=== PATIENT | male | born 1955 | race Caucasian/White ===

== ENCOUNTER → 2016-12-30 | Outpatient (CLI) | payer BC ==
[~2016-12-30] MED LIST: IOPAMIDOL (ISOVUE-M 200) 20 ML VIAL IV ONE; LIDOCAINE 1% 30 ML SDV ONE; NA BICARBONATE 50 MEQ/50 ML VIAL ONE
== END ==
LOC: FIMAGING 07:52
PROVIDERS: ATTEND Neurological Surgery
PROC: 3E0R3KZ Introduction of Other Diagnostic Substance into Spinal Canal, Percutaneous Approach (ICD-10-PCS; principal; 2016-12-30)
DX: M99.73 Connective tissue and disc stenosis of intervertebral foramina of lumbar region (principal); M48.06 Spinal stenosis, lumbar region; M53.3 Sacrococcygeal disorders, not elsewhere classified; M89.38 Hypertrophy of bone, other site; M43.16 Spondylolisthesis, lumbar region; M51.26 Other intervertebral disc displacement, lumbar region; Z98.890 Other specified postprocedural states
CPT/HCPCS: Q9966

== ENCOUNTER 2017-02-21 07:15 | Inpatient (IN) | payer BC ==
[~2017-02-21 07:15] MED LIST changes: +BACITRACIN 50,000 UNITS/10 ML SYR IRR ONE; +BUPIVACAINE/EPI 0.25% 30 ML SDV ONE; +CHLORHEXIDINE GLUC HIBICLENS 118 ML BTL TP ONE; -IOPAMIDOL (ISOVUE-M 200) 20 ML VIAL IV ONE; -LIDOCAINE 1% 30 ML SDV ONE; -NA BICARBONATE 50 MEQ/50 ML VIAL ONE; +THROMBIN (BOVINE) 20,000 UNIT VIAL TP ONE; +ceFAZolin 2 GM/DEXTROSE 100 ML IV ONE
[2017-02-21] MEDS ORDERED: CEFAZOLIN 2 GM/DEXTROSE/100 ML BAG IV ONE (08:36)
[2017-02-21] MEDS ORDERED: LIDOCAINE 1% 2 ML INJ ONE (08:36)
[2017-02-21] MEDS ORDERED: LR 1,000 ML IV ONE (09:36)
[2017-02-21] MEDS ORDERED: LIDOCAINE 1% 5 ML SDV ID PRN (09:36)
[2017-02-21] MEDS ORDERED: MIDAZOLAM 2 MG/2 ML VIAL ONE (11:15)
[2017-02-21] MEDS ORDERED: ACETAMINOPHEN 325 MG TAB PO PRN (12:05)
[2017-02-21] MEDS ORDERED: ONDANSETRON 4 MG/2 ML VIAL IVP PRN (12:05)
[2017-02-21] MEDS ORDERED: HYDROmorphONE/DILAUDID 1 MG/ML SYR IVP PRN (12:05)
[2017-02-21] MEDS ORDERED: DIAZEPAM 5 MG TAB PO PRN (12:05)
[2017-02-21] MEDS ORDERED: BISACODYL 10 MG SUPP PR PRN (12:05)
[2017-02-21] MEDS ORDERED: DIAZEPAM 10 MG/2 ML SYR IVP PRN (12:05)
[2017-02-21] MEDS ORDERED: POLYETHYLENE GLYCOL 3350 17 GM PKT PO PRN (12:05)
[2017-02-21] MEDS ORDERED: diphenhydrAMINE 25 MG CAP PO PRN (12:05)
[2017-02-21] MEDS ORDERED: ONDANSETRON DISINTEGRATING 4 MG TAB PO PRN (12:05)
[2017-02-21] MEDS ORDERED: HYDROmorphONE/DILAUDID 6 MG/30 ML PCA IV PRN (12:05)
[2017-02-21] MEDS ORDERED: NALOXONE HCL 0.4 MG/ML INJ IVP PRN (12:05)
[2017-02-21] MEDS ORDERED: LACTULOSE 20 GM/30 ML UDCUP PO PRN (12:05)
[2017-02-21] MEDS ORDERED: MAGNESIUM HYDROXIDE 30 ML UDCUP PO PRN (12:05)
[2017-02-21] MEDS ORDERED: fentaNYL 100 MCG/2 ML INJ ONE ×4 (12:34→19:48)
[2017-02-21] MEDS ORDERED: REMIFENTANIL HCL 1 MG VIAL ONE ×2 (12:34→14:57)
[2017-02-21] MEDS ORDERED: PROPOFOL/EMULSION 500 MG/50 ML BOTTLE IV ONE ×2 (12:35→14:58)
[2017-02-21] MEDS ORDERED: ONDANSETRON 4 MG/2 ML VIAL ONE (12:35)
[2017-02-21] MEDS ORDERED: DEXAMETHASONE 4 MG/ML VIAL ONE ×2 (12:35)
[2017-02-21] MEDS ORDERED: LIDOCAINE 2% 100 MG/5 ML SYR ONE (12:35)
[2017-02-21] MEDS ORDERED: PHENYLEPHRINE HCL 100 MCG/ML SYR ONE (13:07)
[2017-02-21] MEDS ORDERED: epHEDrine SULFATE 10 MG/ML SYR ONE (13:07)
[2017-02-21] MEDS ORDERED: BACITRACIN 50,000 UNITS/10 ML SYR IRR ONE ×2 (15:43→17:35)
[2017-02-21] MEDS ORDERED: morphINE *ANESTHESIA ONLY* 10 MG/ML VIAL ONE (17:58)
[2017-02-21] MEDS ORDERED: DIAZEPAM 10 MG/2 ML SYR ONE (18:45)
[2017-02-21] MEDS: NS W/ 20 KCl/L 1,000 ML IV SCH (20:35)
[2017-02-21] MEDS: FAMOTIDINE 20 MG/NACL 50 ML IV SCH (20:36)
[2017-02-21] MEDS: METOPROLOL SUCCINATE XR 100 MG TAB PO SCH (20:40)
[2017-02-21] MEDS: SENNOSIDES/DOCUSATE SODIUM TAB PO SCH (20:40)
[2017-02-21] MEDS: traZODone 50 MG TAB PO SCH (20:41)
[2017-02-21] MEDS: ATORVASTATIN CALCIUM 40 MG TAB PO SCH (20:41)
[2017-02-21] MEDS: morphINE SR 15 MG TAB PO SCH (20:41)
--- NOTE | 2017-02-21 20:43 | GOP ---
[f rep st] OPERATIVE REPORT DATE OF OPERATION: 02/21/2017 SURGEON: Esthela Hung MD COPPERSMITH HELPER: Uli Kenney PA-C PREOPERATIVE DIAGNOSIS: Prior lumbar surgery. L3-4, L4-5, L5-S1, post-laminectomy syndrome, degener ative disk disease, severe lumbar foraminal stenosis, intractable left lumbosacral radiculopathy, cherise mbar spondylosis. POSTOPERATIVE DIAGNOSIS: Prior lumbar surgery. L3-4, L4-5, L5-S1, post-laminectomy syndrome, degene rative disk disease, severe lumbar foraminal stenosis, intractable left lumbosacral radiculopathy, l umbar spondylosis. PROCEDURE PERFORMED: Posterior, lateral and intervertebral arthrodesis with decompression and arthr odesis L3-4, L4-5, L5-S1 (44914, 69158 x2), posterior segmental instrumentation L3, L4, L5, S1 (2284 2), spinal stereotaxy, placement of biomechanical expandable intervertebral device without anchors x 3 (L3-4, L4-5, L5-S1), same-incision bone graft harvest, microscope, spinal stereotaxy for placement of pedicle screws. FINDINGS: ESTIMATED BLOOD LOSS: 400 cc. INDICATIONS: The patient is a 61-year-old who had undergone 3 separate lumbar laminectomies at each of the levels L3-4, L4-5, L5-S1, all done by a surgeon in [place] without complication, who develope d intractable severe left leg pain, principally in an L5 distribution, but there were also some S1 c omponents, some posterior hamstring pain. There was pain on the top of the left foot. CT myelogram demonstrated severe foraminal stenosis at L5-S1, L4-5, and even at L3-4. There was terrible degene rative disk disease at L3-4 and L5-S1. There appeared to be severe left lateral recess stenosis at L4-5 and L3-4 and I suggested a 3-level fusion. He understood the risks of the surgery. His cardio logist did not suggest stopping his aspirin therapy. I wanted to have it stopped. I was not denice krishna to do the surgery on aspirin, but we certainly referred him, and offered him a visit with another spine surgeon who might consider such an approach. I was not comfortable with it, but he wanted thanh maria elena with me, and stopped the medication against the medical advice of his judicial law clerk. I did not have an opinion in this regard. I simply would not do his surgery while on anti-platelet agents. Manuel kimbrough knew there was risk of heart attack, nerve injury, spinal fluid leak, continued symptoms. He knew there was a chance surgery could fail. He knew there was a chance that he would have to have addit ional spine surgery at adjacent segments in the future and he accepted these risks. He knew that th e surgery may not alleviate his pain and that he may have a pseudarthrosis. There could be screw an d hardware fracture, malposition and malfunction. He accepted those risks. He wanted to proceed wi th surgery. DESCRIPTION OF PROCEDURE: The patient was taken to the operating room, placed in the supine positio n. General anesthesia was begun. He was flipped prone on the Saran table. Care was taken to pad all points of contact. His back was sterilely prepped and draped in the usual fashion. A localizi ng x-ray was taken. The O-arm was introduced sterilely onto the field. We made a midline incision from the spinous process of L2 down to the spinous process of S2. The tissue was extremely hard and difficult to dissect because of the prior surgery. This caused us to have to make the incision bobbi ana than we would normally do. We exposed the L3 spinous process and much of the L4, L5 and S1 spin ous process which were encased in scar, and it was unclear where the dura was. We dissected down th e L3 lamina, out to the L3 transverse process, and then dissected out the L4, L5 and S1 transverse p rocesses and sacral ala bilaterally until we had a great exposure. After dissecting out the L3-4, L 4-5, L5-S1 facet joints, we decorticated these joints to create arthrodesis and a karen our pedicle s crew entry sites. We attached the Siva Poweralth reference frame to the L3 spinous process, performed an O -arm spin, and using frameless Stealth stereotaxy, we placed pedicle screws bilaterally at L3, L4, L 5, and S1. They all stimulated at acceptable levels. We took 100 mm rods, placed them down over th e tulips, and distracted L3, L4, L5 and S1. We had good lumbar lordosis. We locked the rods in bridgett ce. We then carefully dissected the spinous processes and laminae out of L3-4, L4-5, L5-S1. Much o f the spinous process had been preserved. I saw no evidence of complication from the prior surgery. We carefully dissected all of the spinous processes and rostral arches out. We then harvested the inferior L3 spinous process, the residual L4 and L5 spinous processes, and then drilled left hemila minectomies at L3-4, L4-5, L5-S1 and harvested this bone for autologous grafting purposes. The micr oscope was introduced. We performed decompressions at L3-4, L4-5, L5-S1 and there was scar tissue a t each location where an intralaminar laminotomy had been performed at each location and care was ta yogi to avoid violating the dura. We generally began at the rostral arch, beginning at L3, and L4 an d L5, where we could find the dura and ligamentum flavum interface, and then we worked our way infer iorly to where laminotomies had been performed, and decompressed the exiting at L3, L4 and L5 nerve roots radically. We removed the complete facet joint complexes at L3-4, L4-5, L5-S1 to decompress t hose exiting nerves, but also to delineate our anatomy and to stay away from the thecal sac. We the n mobilized the thecal sac at L3-4, inspected the placed under the thecal sac at L3-4, and there was a chronic calcified disc coming out of the disk space itself. There was not a large intraspinal fr ee fragment at that level. At L4-5, there was just simply a bulging disk, but no large free fragmen t, and an L5-S1 we found a chronic disk and osteophyte complex present at that level that was well c alcified. We began at L5-S1 where we entered the disk, removed the disk and the cartilaginous endpl ates, and then cleaned out the disk space completely. We roughened the subchondral bone to create a rthrodesis and we did likewise then at L4-5 and then at L3-4. The L4-5 space was quite wide and we thought a larger implant could go in there; the L3-4 and L5-S1 would only accept 7 mm implants. We placed trials in each of the disk spaces and chose a 7 x 28 mm devices at L3-4 in L5-S1 and chose an 8 x 28 mm device at L4-5. We then placed bone morphogenic protein and bone autograft into the disk spaces. We used a grand total 4.0 mg of BMP for the entire 3-level surgery. We had a large amount of bony autograft. We inserted the implants at L3-4, L4-5, L5-S1 and explained them under fluorosc opic guidance, and I was happy with the positioning of all the devices. We then removed the inserte rs and decorticated all the remaining posterolateral bone to create our arthrodesis. We then placed bone autograft and the remaining BMP down posterolaterally bilaterally. We placed a subfascial mirela in and then closed the incision in multiple layers using Vicryl sutures. A running PDS was placed i n the skin itself. The patient was reversed from anesthesia, extubated, and transferred to the [facility] very room in stable condition. There were no complications. LOCATION: [facility]. COMPLICATIONS: None. INSTRUMENTATION: CEYXra pedicle screw instrumentation with Elevate cages. /[id number]/MODL
[2017-02-22 05:05] LABS: % IMMATURE GRANULYOCYTES 0.5 % (0.0-1.1); ABSOLUTE IMMATURE GRANULOCYTES 0.07 10^3/uL (0.00-0.10); ADD DIFF? NO; ADD MORPH? NO; ADD SCAN? NO; ATYPICAL LYMPHOCYTE FLAG 0 (0-99); FRAGMENT RBC FLAG 0 (0-99); HEMATOCRIT 39.4 % (40.0-51.0); HEMOGLOBIN 13.1 g/dL (13.7-17.5); LEFT SHIFT FLG 30 (0-99); LIPEMIA HEMOLYSIS FLAG 80 (0-99); MEAN CELL HEMOGLOBIN 29.6 pg (27.9-34.1); MEAN CELL HEMOGLOBIN CONCENTR. 33.2 g/dL (32.4-36.7); MEAN CELL VOLUME 89.1 fL (81.5-99.8); MEAN PLATELET VOLUME 11.9 fL (8.7-11.7); PLATELET CLUMPS FLAG 10 (0-99); PLATELET COUNT 185 10^3/uL (150-400); RED BLOOD CELL COUNT 4.42 10^6/uL (4.40-6.38); RED CELL DISTRIBUTION WIDTH 13.3 % (11.5-15.2)
[2017-02-22 05:21] LABS: ANION GAP 10 mEq/L (8-16); CALCIUM 8.2 mg/dL (8.5-10.4); CARBON DIOXIDE 24 mEq/l (22-31); CHLORIDE 102 mEq/L (97-110); CREATININE 0.8 mg/dL (0.7-1.3); GLOMERULAR FILTRATION RATE > 60; GLUCOSE 159 mg/dL (70-100); POTASSIUM 5.1 mEq/L (3.5-5.2); SODIUM 136 mEq/L (134-144)
--- NOTE | 2017-02-22 06:04 | GPROG ---
[f rep st] PROGRESS NOTE POSTOP CHECK SUBJECTIVE: Awake and alert. Patient with expected lower back pain. OBJECTIVE: VITAL SIGNS: Afebrile. Vital signs are stable. HEENT: Pupils are equal, round and reactive to light. EOMs intact. NEUROLOGIC: Cranial nerves 2-12 are grossly intact. MOTOR: Patient has 5/5 strength in all muscle groups of bilateral upper and lower extremities. Incision is clean, dry, and intact. RAJESH is in place. ASSESSMENT AND PLAN: The patient is status post L3-4, L4-5, L5-S1 TLIF for lower back pain and majority, left lower extremity pain. Patient is seen and evaluated postoperatively by Dr. Hung as well. Admit to the floor. Orders are in place. Call Neurosurgery with any changes or worsening symptoms. /[id number]/MODL MTDD
--- NOTE | 2017-02-22 07:21 | NEUSURGPN ---
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 NAD. Better this am. No torres/neck/chest/abd or gu complaints. No f/c/n/v/d. Objective: AAO x 3, PERRLA/EOMI no droop CN 2-12 grossly intact +lt touch 5/5 BUE/BLE = CDI RAJESH in place Neuro Check Frequency: per routine Urinary Catheter in Place: Yes Urinary Catheter Indication: Other (Use Comment) (to be removed this am) Catheter Insertion Date: 02/21/17 - Physician Discussed Patient with : Abhilash Patient Seen by : Abhilash Neurosurgery Physical Exam - Vitals, I&O, Labs I and O 02/21/17 02/22/17 02/23/17 05:59 05:59 05:59 Intake Total 3400 Output Total 1645 350 Balance 1755 -350 Intake: Oral (ml) 1300 IV Intake (ml) 2100 Output: Urine (ml) 550 350 Catheter 550 350 Estimated Blood Loss (ml) 600 Wound Drainage (ml) 495 Back Saran Magana 495 Other: Intake Quantity Yes Sufficient Bladder Scan Volume (ml) Catheter 90 Vital Signs Temp Pulse Resp BP Pulse Ox 37.1 C 72 16 137/87 H 98 02/22/17 04:00 02/22/17 04:00 02/22/17 04:00 02/22/17 04:00 02/22/17 04:00 Laboratory Results 02/22/17 04:30 02/22/17 04:30 ICD10 Worksheet Patient Problems: Problems Problem Status Onset Arthrodesis status Acute Lumbago Acute Lumbar radicular pain Acute Lumbar stenosis Acute - ICD10 Problem Qualifiers (1) Lumbago Qualifiers: Chronicity: C Back pain laterality: B Sciatica presence: S Sciatica laterality: S (2) Lumbar stenosis (3) Lumbar radicular pain (4) Arthrodesis status
[2017-02-22 08:19] LABS: COLOR YELLOW; LEUKOCYTE ESTERASE,URINE NEGATIVE (NEGATIVE); NITRITE,URINE NEGATIVE (NEGATIVE)
[2017-02-22 08:35] LABS: MUCUS TRACE /lpf (NONE-1+); RBC,URINE 50-182 /hpf (0-3)
[2017-02-22] MEDS ORDERED: FAMOTIDINE 20 MG TAB ONE (09:10)
[2017-02-22] MEDS: SENNOSIDES/DOCUSATE SODIUM TAB PO SCH ×2 (09:13→20:25)
[2017-02-22] MEDS: LISINOPRIL/HCTZ 20/12.5MG 1 EA TAB PO SCH (09:13)
[2017-02-22] MEDS: GABAPENTIN 100 MG CAP PO SCH ×3 (09:14→20:26)
[2017-02-22] MEDS: CETIRIZINE 10 MG TAB PO SCH (09:14)
[2017-02-22] MEDS: morphINE SR 15 MG TAB PO SCH ×2 (09:14→20:27)
[2017-02-22] MEDS: TRIAMCINOLONE ACETONIDE EACHNARE SCH (09:15)
[2017-02-22] MEDS: FAMOTIDINE 20 MG/NACL 50 ML IV SCH (09:15)
[2017-02-22] MEDS: NS W/ 20 KCl/L 1,000 ML IV SCH (13:10)
[2017-02-22] MEDS: oxyCODONE IR 5 MG TAB PO PRN ×4 (13:45→23:21)
[2017-02-22] MEDS: METHOCARBAMOL 750 MG TAB PO PRN (18:24)
[2017-02-22] MEDS: FAMOTIDINE 20 MG TAB PO SCH (20:25)
[2017-02-22] MEDS: ATORVASTATIN CALCIUM 40 MG TAB PO SCH (20:25)
[2017-02-22] MEDS: METOPROLOL SUCCINATE XR 100 MG TAB PO SCH (20:26)
[2017-02-22] MEDS: traZODone 50 MG TAB PO SCH (20:26)
[2017-02-22] MEDS: TEMAZEPAM 15 MG CAP PO PRN (20:26)
[2017-02-23] MEDS: METHOCARBAMOL 750 MG TAB PO PRN ×3 (05:03→20:33)
[2017-02-23] MEDS: oxyCODONE IR 5 MG TAB PO PRN ×5 (05:03→23:08)
--- NOTE | 2017-02-23 07:17 | NEUSURGPN ---
Date of Surgery: 02/21/17 Post Op Day: 2 Assessment/Plan: 61 yo male s/p L3-S1 TLIF - neuro stable - pain controlled on orals - remove RAJESH drain today - postop L-spine x-rays show hardware in good placement - PT/OT - wear brace when out of bed - dispo: possibly home today if progresses well Subjective: Doing well this morning. No lower extremity pain, numbness, tingling. Objective: Awake. Alert. PERRL. EOMI Muscle strength full at 5/5 Sensation intact Catheter Insertion Date: 02/21/17 - Physician Discussed Patient with Dr.: Abhilash Neurosurgery Physical Exam - Vitals, I&O, Labs I and O 02/22/17 02/23/17 02/24/17 05:59 05:59 05:59 Intake Total 3400 1300 Output Total 1645 1965 Balance 1755 -665 Intake: Oral (ml) 1300 800 IV Intake (ml) 2100 IV Infused (ml) 500 NS W/ 20 KCl/L 1,000 ml @ 500 75 mls/hr IV CONT KIRK Rx #:[id number] Output: Urine (ml) 550 1700 Catheter 550 750 Toilet 400 Urinal 550 Estimated Blood Loss (ml) 600 Wound Drainage (ml) 495 265 Back Saran Mag[place] 495 265 Other: Intake Quantity Yes Yes Sufficient Number of Voids Urinal 1 Bladder Scan Volume (ml) Catheter 90 Vital Signs Temp Pulse Resp BP Pulse Ox 37.2 C 74 18 99/54 L 93 02/23/17 04:00 02/23/17 04:00 02/23/17 04:00 02/23/17 04:00 02/23/17 04:00 Laboratory Results 02/22/17 04:30 02/22/17 04:30 ICD10 Worksheet Patient Problems: Problems Problem Status Onset Arthrodesis status Acute Lumbago Acute Lumbar radicular pain Acute Lumbar stenosis Acute
[2017-02-23] MEDS: NS W/ 20 KCl/L 1,000 ML IV SCH (08:13)
[2017-02-23] MEDS: ASPIRIN 81 MG CHEWABLE TAB PO SCH (08:20)
[2017-02-23] MEDS: SENNOSIDES/DOCUSATE SODIUM TAB PO SCH ×2 (08:20→20:33)
[2017-02-23] MEDS: CETIRIZINE 10 MG TAB PO SCH (08:21)
[2017-02-23] MEDS: FAMOTIDINE 20 MG TAB PO SCH ×2 (08:21→20:33)
[2017-02-23] MEDS: GABAPENTIN 100 MG CAP PO SCH ×3 (08:21→20:33)
[2017-02-23] MEDS: TRIAMCINOLONE ACETONIDE EACHNARE SCH (10:28)
[2017-02-23] MEDS: LISINOPRIL/HCTZ 20/12.5MG 1 EA TAB PO SCH (10:29)
[2017-02-23] MEDS: morphINE SR 15 MG TAB PO SCH ×2 (10:30→20:34)
[2017-02-23] MEDS: traZODone 50 MG TAB PO SCH (20:33)
[2017-02-23] MEDS: METOPROLOL SUCCINATE XR 100 MG TAB PO SCH (20:33)
[2017-02-23] MEDS: ATORVASTATIN CALCIUM 40 MG TAB PO SCH (20:33)
[2017-02-23] MEDS: TEMAZEPAM 15 MG CAP PO PRN (20:33)
--- NOTE | 2017-02-24 06:32 | NEUSURGPN ---
Date of Surgery: 02/21/17 Post Op Day: 3 Assessment/Plan: Assessment: 61 yo male that is s/p TLIF L3/4, L4/5 and L5/S1 POD #3 Plan: -s/p TLIF L3/4, L4/5 and L5/S1-pt better and states legs are doing well. Pt with expected lower back pain -post op xrays look good -PT/OT-CPM -doing well on PO medications -RAJESH site looks good. CDI -brace when out of bed -normal urine output -Dr Hung updated and to see pt as well -warning signs given -call with any questions or concerns -take medications as directed -plan for dc today and pt in agreement Subjective: Awake and alert. NAD. Pt with expected lower back pain. No torres/neck/chest/abd or gu complaints. No f/c/n/v/d. Objective: Awake. Alert. PERRL. EOMI Muscle strength full at 5/5 CDI dressing changed Sensation intact Neuro Check Frequency: per routine Urinary Catheter in Place: No Catheter Insertion Date: 02/21/17 - Physician Discussed Patient with : Abhilash Patient Seen by : Abhilash Neurosurgery Physical Exam - Vitals, I&O, Labs I and O 02/23/17 02/24/17 02/25/17 05:59 05:59 05:59 Intake Total 1300 Output Total 1965 825 Balance -665 -825 Intake: Oral (ml) 800 IV Infused (ml) 500 NS W/ 20 KCl/L 1,000 ml @ 500 75 mls/hr IV CONT KIRK Rx #:[id number] Output: Urine (ml) 1700 675 Catheter 750 Toilet 400 Urinal 550 675 Wound Drainage (ml) 265 150 Back Saran Magana 265 150 Other: Intake Quantity Yes Sufficient Number of Voids Toilet 1 Urinal 1 3 Vital Signs Temp Pulse Resp BP Pulse Ox 36.7 C 82 18 109/63 95 02/24/17 04:00 02/24/17 04:00 02/24/17 04:00 02/24/17 04:00 02/24/17 04:00 Laboratory Results 02/22/17 04:30 02/22/17 04:30 ICD10 Worksheet Patient Problems: Problems Problem Status Onset Arthrodesis status Acute Lumbago Acute Lumbar radicular pain Acute Lumbar stenosis Acute - ICD10 Problem Qualifiers (1) Lumbago Qualifiers: Chronicity: C Back pain laterality: B Sciatica presence: S Sciatica laterality: S (2) Lumbar stenosis (3) Lumbar radicular pain (4) Arthrodesis status
--- NOTE | 2017-02-24 06:47 | PDIAF ---
- Diagnosis Diagnosis: s/p lumbar fusion Code Status: Full Code - Medication Management Discharge Medications: Medications to Continue on Transfer Atorvastatin Calcium [Lipitor 80 mg] 80 mg PO HS 01/31/17 [Last Taken 02/17/17 06:30] Cetirizine [ZyrTEC 10 mg (*)] 10 mg PO DAILY 01/31/17 [Last Taken 02/17/17 06:30 ] Herbals/Supplements -Info Only 1 ea PO DAILY 01/31/17 [Last Taken 02/07/17] Lisinopril/Hctz 20/12.5MG [Zestoretic/Prinzide 20/12.5MG (*)] 1 ea PO DAILY [Last Taken 02/17/17 06:30] Metoprolol Succinate Xr [Toprol Xl 100 mg (*)] 100 mg PO HS 01/31/17 [Last Taken 02/17/17 20:30] Multivitamins [Multivitamin (*)] 1 each PO DAILY 01/31/17 [Last Taken 02/07/17] Triamcinolone Acetonide [Nasacort] 2 sprays EACHNARE DAILY 01/31/17 [Last Taken 02/07/17] traZODone [traZODONE 50MG (*)] 50 mg PO HS 01/31/17 [Last Taken 02/17/17 20:30] Acetaminophen [Tylenol 325mg (*)] 325 - 650 mg PO Q4HRS PRN #0 tab 02/24/17 [ Last Taken Unknown] Diazepam [Valium 5 MG (*)] 5 mg PO QID PRN #30 tab 02/24/17 [Last Taken Unknown] Enoxaparin [Lovenox 40 MG (*)] 40 mg SC DAILY #7 syr 02/24/17 [Last Taken Unknown] Gabapentin [Neurontin 100 MG (*)] 100 mg PO TID #90 cap 02/24/17 [Last Taken Unknown] Methocarbamol [Robaxin 750 mg (*)] 750 mg PO QID PRN #60 tab 02/24/17 [Last Taken Unknown] oxyCODONE IR [Oxycodone Ir (*)] 5 mg PO Q3HRS PRN #90 tab 02/24/17 [Last Taken Unknown] Brand Ambassador Promotional Model Antibiotics: none Discharge Medications: Refer to the Discharge Home Medication list for PRN reason. - Orders Services needed: Registered Nurse, Physical Therapy, Occupational Therapy Oxygen: to keep O2 sat above 90% Diet Recommendation: no restrictions on diet Diet Texture: Regular Texture Diet Vicente: Not applicable Wound Care Instructions: wound check at 2 weeks post op - Follow Up Care Current Providers and Referrals: ELIJAH TOLENTINO [Primary Care Provider] - Clary Hung MD [Medical Doctor] - (follow up in 2-3 weeks)
[2017-02-24] MEDS: oxyCODONE IR 5 MG TAB PO PRN ×3 (07:49→15:36)
[2017-02-24] MEDS: METHOCARBAMOL 750 MG TAB PO PRN (07:50)
[2017-02-24 08:08] VITALS: PULSE 90; TEMP 98
[2017-02-24] MEDS: LISINOPRIL/HCTZ 20/12.5MG 1 EA TAB PO SCH (08:43)
[2017-02-24] MEDS: ASPIRIN 81 MG CHEWABLE TAB PO SCH (08:43)
[2017-02-24] MEDS: SENNOSIDES/DOCUSATE SODIUM TAB PO SCH (08:44)
[2017-02-24] MEDS: GABAPENTIN 100 MG CAP PO SCH ×2 (08:44→15:36)
[2017-02-24] MEDS: FAMOTIDINE 20 MG TAB PO SCH (08:44)
[2017-02-24] MEDS: CETIRIZINE 10 MG TAB PO SCH (08:44)
[2017-02-24] MEDS ORDERED: ENOXAPARIN 40 MG/0.4 ML SYR SC SCH (09:00)
[2017-02-24] MEDS: morphINE SR 15 MG TAB PO SCH (09:04)
[2017-02-24] MEDS: TRIAMCINOLONE ACETONIDE EACHNARE SCH (09:05)
[2017-02-24] MEDS ORDERED: PNEUMOCOCCAL 0.5ML VACCINE VIAL IM ONE (10:17)
[2017-02-24 11:37] VITALS: BP 116/63; RESP 18; O2SAT 97
== END 2017-02-24 15:43 | disposition home or self-care (01) | DRG 460 ==
LOC: F3N 08:23
PROVIDERS: ADMIT Neurological Surgery; ATTEND Neurological Surgery
DX: M96.1 Postlaminectomy syndrome, not elsewhere classified (principal); M51.36 Other intervertebral disc degeneration, lumbar region; M47.26 Other spondylosis with radiculopathy, lumbar region; G47.33 Obstructive sleep apnea (adult) (pediatric); I10 Essential (primary) hypertension; E78.5 Hyperlipidemia, unspecified; I25.10 Atherosclerotic heart disease of native coronary artery without angina pectoris; Z23 Encounter for immunization
CPT/HCPCS: 97116-GP; 97161-GP; 97165-GO; C1713; G0009; J0690; J1100; J1170; J1650; J2001; J2250; J2370; J2405; J2704; J3010

== ENCOUNTER → 2017-10-13 | Outpatient (CLI) | payer BC ==
[~2017-10-13] MED LIST changes: -BACITRACIN 50,000 UNITS/10 ML SYR IRR ONE; -BUPIVACAINE/EPI 0.25% 30 ML SDV ONE; -CHLORHEXIDINE GLUC HIBICLENS 118 ML BTL TP ONE; +IOPAMIDOL (ISOVUE-M 200) 20 ML VIAL ONE; +LIDOCAINE 1% 300 MG/30 ML SDV ONE; -THROMBIN (BOVINE) 20,000 UNIT VIAL TP ONE; -ceFAZolin 2 GM/DEXTROSE 100 ML IV ONE
== END ==
LOC: FIMAGING 08:40
PROVIDERS: ATTEND Neurological Surgery
PROC: 3E0R3KZ Introduction of Other Diagnostic Substance into Spinal Canal, Percutaneous Approach (ICD-10-PCS; principal; 2017-10-13)
DX: M54.5 Low back pain (principal); Z98.1 Arthrodesis status
CPT/HCPCS: Q9966

== ENCOUNTER → 2018-08-17 | Outpatient (CLI) | payer BC ==
[2018-08-17 09:26] LABS: INR 0.98 (0.83-1.16); PROTIME(PATIENT) 13.2 SEC (12.0-15.0)
== END ==
LOC: FIMAGING 08:34
PROVIDERS: ATTEND Nurse Practitioner
PROC: 3E0R3KZ Introduction of Other Diagnostic Substance into Spinal Canal, Percutaneous Approach (ICD-10-PCS; principal; 2018-08-17)
DX: M54.18 Radiculopathy, sacral and sacrococcygeal region (principal); M54.5 Low back pain
CPT/HCPCS: Q9966

== ENCOUNTER 2018-10-09 07:22 | Inpatient (IN) | payer BC ==
--- NOTE | 2018-10-09 06:43 | PDHPUP ---
History & Physical Update H&P update statement: This history and physical update is based on an assessment of the patient which was completed after admission or registration (within 24 hours), but prior to the surgery/procedure. H&P update: H&P reviewed & patient examined, no change in patient's condition since H&P completed
[2018-10-09] MEDS ORDERED: CHLORHEXIDINE GLUC HIBICLENS 118 ML BTL TP ONE (07:26)
[2018-10-09] MEDS ORDERED: THROMBIN (BOVINE) 5,000 UNIT VIAL TP ONE (07:26)
[2018-10-09] MEDS ORDERED: BUPIVACAINE/EPI 0.25% 30 ML SDV ONE (07:27)
[2018-10-09] MEDS ORDERED: BACITRACIN 50,000 UNITS/10 ML SYR IRR ONE (07:27)
[2018-10-09] MEDS ORDERED: ceFAZolin 2 GM/DEXTROSE 100 ML IV ONE (07:40)
[2018-10-09] MEDS ORDERED: ACETAMINOPHEN 500 MG TAB PO ONE (07:40)
[2018-10-09] MEDS ORDERED: GABAPENTIN 300 MG CAP PO ONE (07:40)
[2018-10-09] MEDS ORDERED: LR 1,000 ML IV ONE (07:41)
[2018-10-09] MEDS ORDERED: MIDAZOLAM 2 MG/2 ML VIAL IVP ONE (07:46)
--- NOTE | 2018-10-09 07:46 | PDANEPAE ---
ANE History of Present Illness L2-3 TLIF with tie into existing HW ANE Past Medical History - Cardiovascular History Hx Hypertension: Yes Hx Arrhythmias: Yes Hx Chest Pain: No Hx Coronary Artery / Peripheral Vascular Disease: Yes Hx CHF / Valvular Disease: No Hx Palpitations: No Cardiovascular History Comment: CAD with stents x2. AICD. hyperlipidemia - Pulmonary History Hx COPD: No Hx Asthma/Reactive Airway Disease: No Hx Recent Upper Respiratory Infection: No Hx Oxygen in Use at Home: No Hx Sleep Apnea: Yes Sleep Apnea Screening Result - Last Documented: Positive Pulmonary History Comment: braydon positive uses cpap- instructed pt to bring to hospital - Neurologic History Hx Cerebrovascular Accident: Yes Hx Seizures: No Hx Dementia: No Neurologic History Comment: mild TIA 2006- no deficits. tingling down right leg. numbness to left foot - Endocrine History Hx Diabetes: No - Renal History Hx Renal Disorders: No - Liver History Hx Hepatic Disorders: No - Neurological & Psychiatric Hx Hx Neurological and Psychiatric Disorders: No Neurological / Psychiatric History Comment: major back pain and L leg pain - Cancer History Hx Cancer: No - Congenital Disorder History Hx Congenital Disorders: No - GI History Hx Gastrointestinal Disorders: No - Other Health History Other Health History: bilateral hearing aides. wears glasses/ contacts - Chronic Pain History Chronic Pain: Yes (lower back and left leg) - Surgical History Prior Surgeries: 01/2018 battery replaced to pacemaker. 02/21/17 l3-4, l4-5, l5 -s1 TLIF. with Abhilash. appy 1982. LAD angioplasty 1995. R coronary art angioplaty 1999. laminencetomy L5/S1 2004. cervical fusion c3-4 2008. Laminectomy L4/L5. ORIF L ankle 2013. Bilat eyelid lift 2014. laminectomy L3/ L4 2014 ANE Review of Systems Review of systems is: negative Review of Systems: - Exercise capacity METS (RN): 4 METS - Pacemaker Pacemaker Type: Permanent Pacer/Defib Pacemaker Support Specialist: [employer] Pacemaker Model: EVERA MRI XT [id number] Pacemaker Mode: AAIR-DDDR Pacemaker Set Rate: 60 Date Pacemaker Last Checked: 09/13/18 ANE Patient History - Allergies Allergies/Adverse Reactions: clopidogrel [From Plavix] Allergy (Verified 10/03/18 12:08) Hives ticlopidine [From Ticlid] Allergy (Verified 10/03/18 12:08) Hives - Home Medications Home medications: home medication list seen and reviewed Home Medications: Atorvastatin Calcium [Lipitor 80 mg] 80 mg PO HS 01/31/17 [Last Taken 10/08/18] Cetirizine [ZyrTEC 10 mg (*)] 10 mg PO DAILY 01/31/17 [Last Taken 10/08/18] Lisinopril/Hctz 20/12.5MG [Zestoretic/Prinzide 20/12.5MG (*)] 1 ea PO DAILY [Last Taken 10/08/18] Metoprolol Succinate Xr [Toprol Xl 100 mg (*)] 100 mg PO HS 01/31/17 [Last Taken 10/08/18] Multivitamins [Multivitamin (*)] 1 each PO DAILY 01/31/17 [Last Taken 08/29/18] traZODone [traZODONE 50MG (*)] 50 mg PO HS 01/31/17 [Last Taken 10/08/18] Aspirin [Aspirin 81mg (*)] 81 mg PO DAILY 09/28/17 [Last Taken 08/29/18] Gabapentin [Neurontin 100 MG (*)] 300 mg PO BID 09/28/17 [Last Taken 10/09/18 05 :30] Melatonin [Melatonin 5 mg] 10 mg PO HS 09/28/17 [Last Taken 10/08/18] Meloxicam 15 mg PO DAILY 09/28/17 [Last Taken 1 Week Ago ~10/02/18] [place]-3 Fatty Acids [Fish Oil 1000 mg (*)] 1,000 mg PO DAILY 09/28/17 [Last Taken 08/29/18] - NPO status NPO Status: no food or drink >8 hours - Anes Hx Anes Hx: post operative nausea - Smoking Hx Smoking Status: Never smoked - Family Anes Hx Family Anes Hx: none Family Hx Anesthesia Complications: none ANE Labs/Vital Signs - Vital Signs Vital Signs: reviewed preoperatively; see RN documention for details Height: 172.72 cm Weight: 104.326 kg ANE Physical Exam - Airway Neck exam: FROM Mallampati Score: Class 3 Mouth exam: normal dental/mouth exam - Pulmonary Pulmonary: no respiratory distress - Cardiovascular Cardiovascular: regular rate and rhythym - ASA Status ASA Status: III ANE Anesthesia Plan Anesthesia Plan: general endotracheal anesthesia
[2018-10-09] MEDS ORDERED: THROMBIN (BOVINE) 20,000 UNIT VIAL TP ONE (08:38)
[2018-10-09] MEDS ORDERED: LIDOCAINE 2% 100 MG/5 ML SYR ONE (09:44)
[2018-10-09] MEDS ORDERED: PROPOFOL 200 MG/20 ML VIAL ONE (09:44)
[2018-10-09] MEDS ORDERED: ONDANSETRON 4 MG/2 ML VIAL ONE (09:44)
[2018-10-09] MEDS ORDERED: ROCURONIUM 50 MG/5 ML VIAL ONE (09:44)
[2018-10-09] MEDS ORDERED: DEXAMETHASONE 4 MG/ML VIAL ONE (09:44)
[2018-10-09] MEDS ORDERED: HYDROmorphONE/DILAUDID 2 MG/ML INJ ONE ×2 (09:44→14:30)
[2018-10-09] MEDS ORDERED: PROPOFOL/EMULSION 500 MG/50 ML BOTTLE IV ONE (09:44)
[2018-10-09] MEDS ORDERED: REMIFENTANIL HCL 1 MG VIAL ONE (09:44)
[2018-10-09] MEDS ORDERED: fentaNYL 100 MCG/2 ML INJ ONE ×2 (09:44→14:10)
[2018-10-09] MEDS ORDERED: HYDROCODONE/APAP 5/325 TAB PO PRN ×2 (10:17→12:49)
[2018-10-09] MEDS ORDERED: LACTULOSE 20 GM/30 ML UDCUP PO PRN (10:17)
[2018-10-09] MEDS ORDERED: ONDANSETRON DISINTEGRATING 4 MG TAB PO PRN (10:17)
[2018-10-09] MEDS ORDERED: HYDROmorphONE/DILAUDID 6 MG/30 ML PCA IV PRN (10:17)
[2018-10-09] MEDS ORDERED: HYDROmorphONE/DILAUDID 1 MG/ML INJ IVP PRN (10:17)
[2018-10-09] MEDS ORDERED: diphenhydrAMINE 25 MG CAP PO PRN (10:17)
[2018-10-09] MEDS ORDERED: ONDANSETRON 4 MG/2 ML VIAL IVP PRN ×2 (10:17→12:49)
[2018-10-09] MEDS ORDERED: POLYETHYLENE GLYCOL 3350 17 GM PKT PO PRN (10:17)
[2018-10-09] MEDS ORDERED: ZOLPIDEM TARTRATE 5 MG TAB PO PRN (10:17)
[2018-10-09] MEDS ORDERED: MAGNESIUM HYDROXIDE 30 ML UDCUP PO PRN (10:17)
[2018-10-09] MEDS ORDERED: BISACODYL 10 MG SUPP PR PRN (10:17)
[2018-10-09] MEDS ORDERED: NALOXONE HCL 0.4 MG/ML INJ IVP PRN ×2 (10:17→12:49)
[2018-10-09] MEDS ORDERED: NS 1,000 ML IV SCH (10:30)
--- NOTE | 2018-10-09 10:54 | PDMN ---
Medical Necessity Medical necessity: [facility] S820 lumbar fusion INPT only OP: TLIF with tie into existing hardware [id number] APPROVED FOR 3 DAY INPT STAY BEGINNING 10/09
[2018-10-09] MEDS ORDERED: MEPERIDINE 25 MG/0.5 ML AMP IVP PRN (12:49)
[2018-10-09] MEDS ORDERED: LABETALOL HCL 20 MG/4 ML INJ IVP PRN (12:49)
[2018-10-09] MEDS ORDERED: oxyCODONE IR 5 MG TAB PO PRN (12:49)
[2018-10-09] MEDS ORDERED: ACETAMINOPHEN 500 MG TAB PO PRN (12:49)
[2018-10-09] MEDS ORDERED: PROMETHAZINE HCL 25 MG/ML INJ IVP PRN (12:49)
[2018-10-09] MEDS ORDERED: DEXAMETHASONE 4 MG/ML VIAL IVP PRN (12:49)
--- NOTE | 2018-10-09 13:19 | POSTANESTH ---
Post Anesthetic Evaluation Cardiovascular Status: Similar to Pre-Op Cond Respiratory Status: Similar to Pre-op Cond. Level of Consciousness/Mental Status: Can Participate in Eval, Mildly Sleepy, Arousable Pain Control: Adequate, Prn Tx Ordered Nausea/Vomiting Control: Adequate, Prn Tx Ordered Complications Possibly Related to Anesthesia: None Noted
[2018-10-09] MEDS: fentaNYL 100 MCG/2 ML INJ IVP PRN ×2 (14:13→14:34)
--- NOTE | 2018-10-09 14:15 | POSTOPPROG ---
Post Op Note Date of Operation: 10/09/18 Surgeon: Clary Hung Acquisitions Editor: MONICA Kenney Anesthesiologist: Nely Donato MD Anesthesia: GET(General Endotracheal), Local (Specify) Pre-op Diagnosis: lumbar stenosis L2/3 Post-op Diagnosis: Lumbar stenosis L2/3, prior lumbar fusion Indication: LE pain Procedure: L2/3 TLIF with tie in fusion to prior L spine fusion Findings: see op report Inf/Abcess present in the surg proc area at time of surgery?: No Depth: Deep Incisional (Fascial) EBL: 100-500 Total fluids administered: see anesthesia record Complications: none Drains: Saran Magana
--- NOTE | 2018-10-09 14:19 | SOAPPROG ---
SOAP Progress Note Assessment/Plan: Post Op Note: S: Awake and alert. NAD. Pt with expected lower back pain O: AFVSS/PERRLA/EOMI no droop CN 2-12 grossly intact +lt touch 5/5 BUE/BLE = CDI RAJESH in place A/P: 62 yo male that is s/p TLIF L2/3 with tie in fusion to prior L spine hardware -orders in place -brace when out of bed -call with any questions or concerns -pt understands and agrees Objective: Vital Signs Temp Pulse Resp BP Pulse Ox 36.5 C 65 18 158/92 H 95 10/09/18 07:43 10/09/18 07:43 10/09/18 07:43 10/09/18 07:43 10/09/18 07:43 ICD10 Worksheet Patient Problems: Problems Problem Status Onset Arthrodesis status Acute Lumbago Acute Lumbar radicular pain Acute Lumbar stenosis Acute
[2018-10-09] MEDS: HYDROmorphONE/DILAUDID 2 MG/ML INJ IVP PRN ×2 (14:40→14:57)
[2018-10-09] MEDS: METHOCARBAMOL 750 MG TAB PO PRN (16:17)
[2018-10-09] MEDS: oxyCODONE IR 5 MG TAB PO PRN ×2 (16:17→22:41)
[2018-10-09] MEDS: GABAPENTIN 100 MG CAP PO SCH ×2 (17:08→22:38)
[2018-10-09] MEDS: ACETAMINOPHEN 500 MG TAB PO SCH ×2 (17:08→22:39)
[2018-10-09] MEDS: CETIRIZINE 10 MG TAB PO SCH (17:08)
[2018-10-09] MEDS: LISINOPRIL/HCTZ 20/12.5MG 1 EA TAB PO SCH (17:10)
[2018-10-09] MEDS: ceFAZolin 2 GM/DEXTROSE 100 ML IV SCH (17:35)
--- NOTE | 2018-10-09 18:05 | GOP ---
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 PROCEDURE PERFORMED: Posterior lateral and intervertebral arthrodesis with bilateral decompressions at L2-3 with removal of nonsegmental hardware at L3, placement of new nonsegmental hardware across a single interspace L2-3 ([id number], [id number], [id number]), same incision bone graft harvest, microscope, placement of biomechanical intervertebral device L2-3. FINDINGS: ESTIMATED BLOOD LOSS: 250 cc. INDICATIONS: The patient is a 62-year-old who last year underwent a successful spinal fusion at L3-4 , 4-5, and 5-1. 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 He over the last several months has developed prog ressive radiating discomfort into both legs and his CT myelogram demonstrated severe adjacent segment disease and stenosis at L2-3 above his prior fusion. There is some mild changes at L1-2, I think th e radiologist called them moderate, but the degree of stenosis was much more impressive at L2-3 and I did not think L1-2 needed to be treated currently. I did feel that in time he most likely would dev elop need at L1-2 as well, but I did not think that he needed to do that at this time. The risk of c ontinued symptoms, nerve injury, spinal fluid leak was discussed. We also had reviewed his old films and is unclear whether or not he had definitively achieved arthrodesis at L5-S1. There is no lucenc y or hardware complication at L5-S1, but it is unclear to me. It appeared there was some air in the disk space or gas in the disk space, which is usually consistent with pseudoarthrosis. 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 He did want to proceed despite the known risks. DESCRIPTION OF PROCEDURE: The patient was taken to the operating room, placed in supine position. G eneral anesthesia was begun. He was flipped prone onto the Saran table. Care was taken to pad all points of contact. His back was sterilely prepped and draped in usual fashion. A localizing x-ray was taken. We made a midline incision with a scalpel blade. We used most of the previous incision or least the rostral half of the prior incision and extended that rostrally by about another half length. The tot al length of incision in my estimation was about 8 cm. The subcutaneous tissue was dissected using tenisha wyatt plasma blade down through the fascia and a subperiosteal dissection was made down the inferior james eneida of L1, the complete lamina of L2, and the rostral lamina of L3 was exposed. We exposed the prior posterior lateral hardware at L3, placed a self-retaining retractor, and removed the cap screws from the L3 screws, and then, I used a carbide bit to cut the lawrence between L3 and L4. We cut it on each s pedro and used a large amount of irrigation to collect metal filings. These were discarded. We then r emoved the rods, saved the rods, and then removed each of the screws. They were very tightly and meet zeinab seated in bone. There was no evidence of loosening. We placed the Gel-Foam bullet in the hole t hat remained. We decorticated the L2-3 facet joint above the screws at L3 to create arthrodesis. We then attached the Stealth reference frame and using frameless Stealth stereotaxy, we placed pedicl e screws bilaterally at L2. We did not need to place new screws at L3. We are going to use connecto rs to connect to the old lawrence. We had fit these connectors on the old rods and dissected all the post erolateral bone away from the lawrence for acceptance of the new connectors. We checked the position of tenisha he L2 screws with an O-arm spin and we stimulated them and they stimulated at acceptable levels. We placed the connector down on the rostral L3 lawrence and then took 120 mm lawrence. It might have been 150 mm lawrence, and then cut it to size. We divided into to save money on the implants, cut it to size, in roug hly about 55 mm on each side. We then over distracted between L2 and 3 to facilitate the TLIF. We r emoved all the soft tissue, the bone from the L2 through 3 spinous process and then harvested the inf erior L2 spinous process for autologous grafting purposes. We harvested the L3 spinous process for a utologous grafting purposes. We drilled bilateral laminectomies of L2 and harvested this bone for au tologous grafting purposes. We then removed a lot of the hypertrophic ligamentum flavum and then we drilled carefully down through the rostral lamina of L3 and did en bloc rostral laminectomy of L3 and lifted this material and the hypertrophic facets, medial facet rostrally out of the spinal canal, de compressing the spinal canal nicely. We performed a complete facetectomy on the left-hand side to al low the TLIF from that side. We decompressed the right-hand side, but preserved the IAP/SAP complex of the 2, 3 facet joint on the right to allow arthrodesis there. We then swept the L3 nerve root med ially from the left-hand side and then removed the disk and the cartilaginous endplates completely. We then sized the space and chose an 8 mm implant. It was inserted after BMP and bone autograft were placed into the disk space. We inserted it, and then after seating it in the position that we wante d, we expanded it. We also after proceeding relaxed completely distraction between L2 and 3 and we g ot about 6 or 7 mm of relaxation making our lawrence somewhat prominent in the rostral tulips at that loca tion. We left these loose as we expanded the implant to get lordosis and we then final tightened the cap screws according to company specification, and indeed, we had some segmental return of lordosis at the segment in question. We then decorticated all remaining posterior lateral bone, bilaterally p lace BMP posterolaterally bilaterally. We used a grand total of 2 mg of BMP for the entire surgery. We placed a subfascial drain and then closed the incision in multiple layers using Vicryl sutures. A PDS was placed in the skin itself. Patient was reversed from anesthesia, extubated, and transferre d to recovery room in stable condition. There were no complications. COMPLICATIONS: None. HARDWARE USED: Solera 5.5 mm system. We removed a Solera L3 screw from a Solera 4.75 mm system. We used an 8 x 28 mm Elevate cage at L2-3. /[id number]/MODL
[2018-10-09] MEDS: MELATONIN 3 MG TAB PO SCH (22:38)
[2018-10-09] MEDS: traZODone 50 MG TAB PO SCH (22:39)
[2018-10-09] MEDS: ATORVASTATIN CALCIUM 40 MG TAB PO SCH (22:39)
[2018-10-09] MEDS: SENNOSIDES/DOCUSATE SODIUM TAB PO SCH (22:40)
[2018-10-09] MEDS: FAMOTIDINE 20 MG TAB PO SCH (22:40)
[2018-10-09] MEDS: METOPROLOL SUCCINATE XR 100 MG TAB PO SCH (23:13)
[2018-10-10] MEDS: ceFAZolin 2 GM/DEXTROSE 100 ML IV SCH (02:32)
[2018-10-10] MEDS: oxyCODONE IR 5 MG TAB PO PRN ×6 (02:37→22:03)
[2018-10-10] MEDS: METHOCARBAMOL 750 MG TAB PO PRN (03:30)
[2018-10-10 05:36] LABS: PLATELET COUNT 187 10^3/uL (150-400)
[2018-10-10] MEDS: ACETAMINOPHEN 500 MG TAB PO SCH ×3 (06:32→22:41)
--- NOTE | 2018-10-10 07:08 | NEUSURGPN ---
Date of Surgery: 10/09/18 Post Op Day: 1 Assessment/Plan: 62 yo male s/p TLIF at L2/3 with tie in to previous fusion - neuro stable - pain control - wear brace when out of bed - PT/OT - postop L-spine x-rays pending - will have drain removed later this afternoon - please contact neurosurgery with any changes in neuro status/exam Patient seen by Dr. Hung. Subjective: Having pain localized to the back. No lower extremity pain. Objective: Awake. Alert. PERRL Speech fluent Muscle strength full at 5/5 Sensation intact Catheter Insertion Date: 10/09/18 - Physician Patient Seen by .: Abhilash Neurosurgery Physical Exam - Vitals, I&O, Labs I and O 10/09/18 10/10/18 10/11/18 05:59 05:59 05:59 Intake Total 1275 Output Total 1585 Balance -310 Weight 104.326 kg Intake: Oral (ml) 850 IV Intake (ml) 200 IV Infused (ml) 225 Ns 1,000 ml @ 100 mls/hr 25 IV CONT [facility]K Rx#: [id number] ceFAZolin 2 GM/DEXTROSE 200 100 ml @ 200 mls/hr IV Q8H [facility] Rx#:[id number] Output: Urine (ml) 1350 Catheter 1350 RAJESH Drain Output (ml) 235 Back 235 Other: Intake Quantity Yes Sufficient Vital Signs Temp Pulse Resp BP Pulse Ox 36.8 C 60 16 127/66 H 97 10/10/18 03:24 10/10/18 03:24 10/10/18 03:24 10/10/18 03:24 10/10/18 03:24 Laboratory Results 10/10/18 04:45 10/10/18 04:45 ICD10 Worksheet Patient Problems: Problems Problem Status Onset Arthrodesis status Acute Lumbago Acute Lumbar radicular pain Acute Lumbar stenosis Acute
[2018-10-10] MEDS: SENNOSIDES/DOCUSATE SODIUM TAB PO SCH ×2 (08:21→21:46)
[2018-10-10] MEDS: LISINOPRIL/HCTZ 20/12.5MG 1 EA TAB PO SCH (08:21)
[2018-10-10] MEDS: FAMOTIDINE 20 MG TAB PO SCH ×2 (08:21→21:45)
[2018-10-10] MEDS: GABAPENTIN 100 MG CAP PO SCH ×2 (08:21→21:45)
[2018-10-10] MEDS: CETIRIZINE 10 MG TAB PO SCH (08:21)
--- NOTE | 2018-10-10 14:21 | ASMTCMCOM ---
CM Note CM Note Notes: Pt had planned TLIF at L2/3 with tie in to previous fusion. Pt resides with spouse. OT rec home, PT rec outpatient. Anticipate pt will d/c when medically stable. No CM d/c needs identified. CM available for changes/needs. Date Signed: 10/10/2018 02:21 PM Electronically Signed By:ELISA Ozuna
[2018-10-10] MEDS: MELATONIN 3 MG TAB PO SCH (21:45)
[2018-10-10] MEDS: ATORVASTATIN CALCIUM 40 MG TAB PO SCH (21:45)
[2018-10-10] MEDS: traZODone 50 MG TAB PO SCH (21:46)
[2018-10-10] MEDS: METOPROLOL SUCCINATE XR 100 MG TAB PO SCH (21:47)
[2018-10-11] MEDS: oxyCODONE IR 5 MG TAB PO PRN ×2 (05:16→08:41)
[2018-10-11] MEDS: ACETAMINOPHEN 500 MG TAB PO SCH (06:34)
[2018-10-11 08:04] VITALS: BP 103/60
--- NOTE | 2018-10-11 08:15 | NEUSURGPN ---
Date of Surgery: 10/09/18 Post Op Day: 2 Assessment/Plan: 62 yo male s/p TLIF at L2/3 with tie in to previous fusion POD#2 - neuro stable - pain control - wear brace when out of bed - PT/OT - postop L-spine x-rays stable hardware placement - Remove RAJESH -Discharge home - please contact neurosurgery with any changes in neuro status/exam Subjective: Legs feel good, expected incisional pain Objective: AxO x3 MAEx4 5/5 BLE Sensation intact to light touch BLE Dressing/Incision CDI RAJESH patent Neuro Check Frequency: per routine Urinary Catheter in Place: No Catheter Insertion Date: 10/09/18 - Physician Discussed Patient with : Abhilash Patient Seen by : Abhilash Neurosurgery Physical Exam - Vitals, I&O, Labs I and O 10/10/18 10/11/18 10/12/18 05:59 05:59 05:59 Intake Total 1275 1000 350 Output Total 1585 990 Balance -310 10 350 Weight 104.326 kg Intake: Oral (ml) 850 1000 350 IV Intake (ml) 200 IV Infused (ml) 225 Ns 1,000 ml @ 100 mls/hr 25 IV CONT KIRK Rx#: [id number] ceFAZolin 2 GM/DEXTROSE 200 100 ml @ 200 mls/hr IV Q8H [facility] Rx#:[id number] Output: Urine (ml) 1350 700 Catheter 1350 700 RAJESH Drain Output (ml) 235 290 Back 235 290 Other: Intake Quantity Yes Sufficient Number of Voids Catheter 1 Vital Signs Temp Pulse Resp BP Pulse Ox 37.2 C 62 15 103/60 94 10/11/18 08:00 10/11/18 08:00 10/11/18 08:00 10/11/18 08:00 10/11/18 08:00 Laboratory Results 10/10/18 04:45 10/10/18 04:45 ICD10 Worksheet Patient Problems: Problems Problem Status Onset Arthrodesis status Acute Lumbago Acute Lumbar radicular pain Acute Lumbar stenosis Acute
[2018-10-11] MEDS: CETIRIZINE 10 MG TAB PO SCH (08:42)
[2018-10-11] MEDS: GABAPENTIN 100 MG CAP PO SCH (08:42)
[2018-10-11] MEDS: SENNOSIDES/DOCUSATE SODIUM TAB PO SCH (08:43)
[2018-10-11] MEDS: FAMOTIDINE 20 MG TAB PO SCH (08:43)
[2018-10-11] MEDS: LISINOPRIL/HCTZ 20/12.5MG 1 EA TAB PO SCH (08:52)
[2018-10-11] MEDS: METHOCARBAMOL 750 MG TAB PO PRN (11:44)
[2018-10-12] MEDS ORDERED: ENOXAPARIN 40 MG/0.4 ML SYR SC SCH (09:00)
== END 2018-10-11 12:03 | disposition home or self-care (01) | DRG 455 ==
LOC: F3N 07:22
PROVIDERS: ADMIT Neurological Surgery; ATTEND Neurological Surgery
DX: M48.061 Spinal stenosis, lumbar region without neurogenic claudication (principal); M54.16 Radiculopathy, lumbar region; I10 Essential (primary) hypertension; I25.10 Atherosclerotic heart disease of native coronary artery without angina pectoris; E78.5 Hyperlipidemia, unspecified; G47.33 Obstructive sleep apnea (adult) (pediatric); Z98.1 Arthrodesis status; Z95.810 Presence of automatic (implantable) cardiac defibrillator; Z95.5 Presence of coronary angioplasty implant and graft; Z86.73 Personal history of transient ischemic attack (TIA), and cerebral infarction without residual deficits
CPT/HCPCS: 97116-GP; 97161-GP; 97165-GO; 97530-GP; C1713; J0690; J1100; J1170; J2001; J2250; J2405; J2704; J3010